=== PATIENT | male | born 1940 | race Caucasian/White ===

== ENCOUNTER 2016-06-30 10:36 | Day surgery (SDC) | payer OTHER, MEDICARE ==
[2016-06-29 19:00] VITALS: BMI 22.8
--- NOTE | 2016-06-30 09:18 | HP ---
[facility] PMH - Chief Complaint History of Present Illness: 76 year old male with renal failure who needs peritoneal dialysis catheter for planned dialysis treatment. History Source: Patient Limitations to Obtaining History: No Limitations - Past Medical History Allergies/Adverse Reactions: Allergies Allergy/AdvReac Type Severity Reaction Status Date / Time levofloxacin [From Levaquin] Allergy Verified 06/29/16 15:53 tamsulosin Allergy Verified 06/29/16 15:53 Cardiovascular: Yes: AFIB, HTN Renal/: Yes: Renal Inusuff Additional Medical History: PSH: Lap cholecstectomy, hiatal hernia repair - Current Medications Current Medications: Home Medications Medication Instructions Recorded Amlodipine Besylate 10 mg PO DAILY 06/29/16 Hydromorphone [Dilaudid -] 4 mg PO Q8H PRN 06/29/16 Losartan Potassium 25 mg PO DAILY 06/29/16 Warfarin Na [Coumadin] 5 mg PO ASDIR 06/29/16 Warfarin Na [Coumadin] 10 mg PO ASDIR 06/29/16 Carvedilol [Coreg -] 6.25 mg PO BID 06/30/16 Pravastatin Sodium 20 mg PO HS 06/30/16 Satellite Physical Exam - Physical Examination General Appearance: Well Nourished ENT: Clear Lung: Clear to auscultation Heart: Regular rate & rhythm Abdomen: Soft Extremities: No edema Satellite Impression/Plan - Impression/Plan Impression: CKD 5. Plan to start peritoneal dialysis in the near future Operative Procedure: Laparoscopic placement of peritoneal dislysis catheter. Date to be Performed: 06/30/16
[2016-06-30] MEDS ORDERED: PROPOFOL 20 ML ONE ×2 (12:12)
[2016-06-30] MEDS ORDERED: SUCCINYLCHOLINE CHLORIDE 200 MG/10 ML VIAL ONE (12:12)
[2016-06-30] MEDS ORDERED: ROCURONIUM BROMIDE 50 MG/5 ML VIAL ONE (12:13)
[2016-06-30] MEDS ORDERED: ceFAZolin SODIUM 1 GM VIAL ONE (12:27)
[2016-06-30] MEDS ORDERED: BUPIVACAINE HCL/PF 0.5% (5MG/ML) 10 ML VIAL IJ ONE (12:34)
[2016-06-30] MEDS ORDERED: DESFLURANE GAS 240 ML BOTTLE IH ONE (12:36)
[2016-06-30] MEDS ORDERED: GLYCOPYRROLATE 0.2 MG/1 ML VIAL ONE ×2 (12:53→12:55)
[2016-06-30] MEDS ORDERED: NEOSTIGMINE METHYLSULFATE 0.5 MG/ML - 10 ML MDV ONE (12:53)
--- NOTE | 2016-06-30 13:27 | OP ---
Operative Note - Note: Operative Date: 06/30/16 Pre-Operative Diagnosis: Renal failure Operation: Laparoscopic placement peritoneal dialysis catheter. Findings: No intra-abdominal adhesions. Post-Operative Diagnosis: Same as Pre-op Surgeon: Beau Mccabe Anesthesiologist/WHEAT BUYER: Felipa Coy Anesthesia: General Operative Report Dictated: Yes
[2016-06-30] MEDS ORDERED: ONDANSETRON 4 MG/2 ML VIAL IVPUSH PRN (13:28)
[2016-06-30] MEDS ORDERED: IBUPROFEN 600 MG TABLET (FP) PO PRN (13:28)
[2016-06-30] MEDS ORDERED: oxyCODONE HCL 5 MG TABLET PO PRN (13:28)
[2016-06-30] MEDS ORDERED: SODIUM CHLORIDE 1,000 ML IV SCH (13:30)
[2016-06-30] MEDS ORDERED: LABETALOL HCL 5 MG/1 ML (100MG/20 ML VIAL) IVPUSH ONE (13:31)
--- NOTE | 2016-06-30 14:11 | OP ---
DATE OF OPERATION: 06/30/2016 SURGEON: Shabnam Johnson MD PROCEDURE: Laparoscopic placement of peritoneal dialysis catheter. PREOPERATIVE DIAGNOSIS: End-stage renal disease. POSTOPERATIVE DIAGNOSIS: End-stage renal disease. ANESTHESIA: General. ANESTHESIOLOGIST: Felipa Coy MD OPERATIVE FINDINGS: There were no abnormal adhesions or fatty omentum in the peritoneal cavity. OPERATIVE PROCEDURE: Following routine patient identification, general anesthesia was induced. The abdomen was prepped with ChloraPrep. A time-out was performed. Marcaine 0.5% was infiltrated in the planned sites of incision. A 5-mm incision was made in the midline above the umbilicus, and a 5-mm optical port was placed under direct laparoscopic visualization into the peritoneal cavity. Pneumoperitoneum was established with carbon dioxide to 15 mmHg pressure. A 5-mm angled laparoscope was used to explore the abdominal cavity. A second 5-mm port was placed under direct vision in the left lower quadrant. An incision was made to the right of the umbilicus, and an 8-mm bladeless trocar was advanced towards the peritoneum and then inferiorly towards the pelvis until it entered the abdominal cavity. A curled swan-neck catheter was then passed through the port, and the inner cuff positioned in the abdominal wall at the level of the fascial incision. The port was removed. The other end of the catheter was attached to a curved tunneler, which was passed subcutaneous plane to exit on the right lower quadrant abdominal wall at the previously marked site. The Luer Lock Adaptor was placed on the catheter, and then 1 L of saline was run into the peritoneal cavity in approximately 3-1/2 minutes. The bag was dropped to the floor and fluid flowed out without difficulty. Pneumoperitoneum was reestablished, and the catheter was checked, and it was lying in good position on top of loops of small intestine in the pelvis. All ports were then removed. The wounds were closed with interrupted suture of 3-0 Vicryl and subcutaneous tissues and subcuticular sutures of 4-0 Biosyn on the skin. Dermabond glue was applied to the incisions. A Biopatch was placed around the catheter, and then, a large sterile dressing was taped to the skin over the catheter. Patient was then extubated and taken to the recovery room in stable condition. SHABNAM JOHNSON M.D. [id number]
[2016-06-30 14:18] VITALS: TEMP 97.9
[2016-06-30 15:11] VITALS: PULSE 60
[2016-06-30 16:42] VITALS: BP 170/80
== END 2016-06-30 16:00 | disposition home or self-care (01) ==
LOC: JASU-SURG 10:36
PROVIDERS: ATTEND Surgery
PROC: 0WHG43Z Insertion of Infusion Device into Peritoneal Cavity, Percutaneous Endoscopic Approach (ICD-10-PCS; principal; 2016-06-30 12:00)
DX: I12.0 Hypertensive chronic kidney disease with stage 5 chronic kidney disease or end stage renal disease (principal); N18.6 End stage renal disease
CPT/HCPCS: 36415; 84132; 94760